=== PATIENT | female | born 1965 | race Caucasian/White ===

== ENCOUNTER 2018-10-04 13:24 | Emergency (ER) | payer MEDICAID, SELFPAY ==
[2018-10-04 13:25] VITALS: BP 158/89; PULSE 103; RESP 17; TEMP 36.8; O2SAT 98; BMI 25.2
--- NOTE | 2018-10-04 13:57 | ED.VIS.GEN ---
History of Present Illness Chief Complaint: Back Informant: Patient Onset: Days Narrative: Presents to the ED with left side sciatic nerve pain that started about a week and a half ago. She states that has been intermittent. 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 She states that today she cannot take the pain any longer. She denies any known injury. She did take Advil earlier this morning for analgesia without relief. She denies any paresthesias or bowel/bladder incontinence. Past Medical History - Allergies and Home Meds Allergies/Adverse Reactions: Allergies No Known Allergies Allergy (Verified 10/04/18 13:25) Primary Care Physician: Corona Duke MD [Primary Care Provider] - Smoking Status: Current every day smoker Review of Systems General: Denies: Chills, Fever, Sweats Eyes: Denies: Visual changes - bilaterally, Diplopia ENT: Denies: Rhinorrhea, Sore throat Cardiovascular: Denies: Chest pain, Palpitations Respiratory: Denies: Dyspnea, Cough, Dyspnea on exertion Gastrointestinal: Denies: Abdominal pain, Nausea, Vomiting, Diarrhea, Melena, Hematochezia Genitourinary: Denies: Dysuria, Hematuria, Frequency Musculoskeletal: Reports: Back pain. Denies: Extremity Pain Skin: Denies: Rash, Wounds Neurological: Denies: Headache, Weakness, Numbness Physical Exam Vital Signs/Narrative: Vital Signs Temp Pulse Resp BP Pulse Ox 10/04/18 13:25 98.2 F 103 H 17 158/89 H 98 General: Well nourished, Well developed, No Acute Distress Head: Normocephalic, Atraumatic Eyes: Perrl, EOMI ENT: Moist mucous membranes, No rhinorrhea Neck: Supple, Nontender Cardiovascular: Regular rate, Regular rhythm, No murmurs Respiratory: No distress, CTA bilaterally, Chest nontender Abdomen: Soft, Nontender, Nondistended, Normal bowel sounds Back: - - TTP over L sciatic notch. No midline lumbar TTP. Extremities: Nontender, No edema Skin: Normal color, No rash Neurological: Alert, Oriented x3, Cranial nerves II-XII grossly intact, Normal Strength, Normal Sensation Psychological: Normal affect, Normal Mood Diagnostic/Tx/Re-eval - Medical Decision Making Patient presents to the ED with left-sided sciatica. She has a history of this. She states it feels similar. She would like to attempt to go to work tonight. She has no focal neurological deficits and is tender to palpation in the left sciatic notch. Patient was given IM Toradol and a dose of Lortab elixir here for symptomatic relief. She states that she cannot swallow whole pills at home and requires tablets to be crushed or oral suspensions of medications. At this time, I think it is safe for the patient be discharged home with prescription for Lortab elixir and will take Naprosyn. She declines prescription for muscle relaxer. She is advised to follow-up with PCP if symptoms persist or worsen. Educated on signs/symptoms to return to the ED. She is provided discharge instructions. She is agreeable plan Impression: Left-sided sciatic nerve pain. Disposition: Home stable ED Disposition - Plan for ED Patient: Disposition: Home or Assisted Living Diagnosis: Sciatica Instructions: BACK PAIN w/ SCIATICA Prescriptions: Hydrocodone/Acetaminophen [Lortab 10 mg-300 mg/15 ml Elxr] 7.5 ml PO Q4H PRN PRN 3 Days #120 ml PRN Reason: Pain Prescription Printed Referrals: Corona Duke MD [Primary Care Provider] -
[2018-10-04] MEDS: Ketorolac 30 MG/ML Syringe IM (14:37)
[2018-10-04 15:46] VITALS: BP 143/88; PULSE 74; RESP 18
== END 2018-10-04 15:47 | disposition home or self-care (01) ==
PROVIDERS: Emergency Provider Physician Assistant; Family Provider Family Medicine; PCP Family Medicine
DX: M54.32 Sciatica, left side (principal); F17.200 Nicotine dependence, unspecified, uncomplicated
CPT/HCPCS: 96372; 99283

== ENCOUNTER 2019-06-05 12:22 | Emergency (ER) | payer MEDICAID, SELFPAY ==
[2019-06-05 12:22] VITALS: BP 141/82; PULSE 120; RESP 20; TEMP 36.4; O2SAT 99; BMI 25.8
[2019-06-05] MEDS: Ketorolac 60 MG/2 ML Vial IM (12:53)
--- NOTE | 2019-06-05 12:54 | ED.VIS.GEN ---
History of Present Illness Chief Complaint: Back Informant: Patient Onset: Days - 2 days Current Severity: Moderate Maximum Severity: Moderate Narrative: Patient presents with recurrent sciatica. 2 days ago she noted pain in the left sciatic region down the lateral portion of her left leg. She states that she had jumped into break up a fight between her son's puppy and another dog. She felt something pull in her left lower back. She denies direct trauma to her back or a fall. She has chronic paresthesias that are unchanged. She did contact her PCP who currently has her on a Medrol Dosepak. - Past Medical History (1) Sciatica Status: Chronic Past Medical History - Allergies and Home Meds Allergies/Adverse Reactions: Allergies No Known Allergies Allergy (Verified 06/05/19 12:24) Primary Care Physician: Corona Duke MD [Primary Care Provider] - Prior records reviewed: Yes Smoking Status: Current every day smoker Review of Systems General: Denies: Chills, Fever Eyes: Denies: Visual changes - bilaterally ENT: Denies: Bilateral ear pain Cardiovascular: Denies: Chest pain Respiratory: Denies: Dyspnea, Cough Gastrointestinal: Denies: Abdominal pain, Nausea, Vomiting, Diarrhea Genitourinary: Denies: Dysuria Musculoskeletal: Reports: Back pain Skin: Denies: Rash Neurological: Reports: Parasthesia - Chronic paresthesias left leg. Denies: Headache Hematologic: Denies: Easy bruising, Easy bleeding Allergy: Denies: Uticaria Physical Exam Vital Signs/Narrative: Vital Signs Temp Pulse Resp BP Pulse Ox 06/05/19 12:22 97.6 F L 120 H 20 H 141/82 H 99 Inital Vital Signs reviewed: Yes General: Well nourished, Well developed Head: Normocephalic ENT: Moist mucous membranes Neck: Supple Cardiovascular: Regular rate, Regular rhythm Respiratory: No distress, CTA bilaterally Abdomen: Soft, Nontender Back: - - No midline thoracic or lumbar tenderness. She does have reproducible tenderness of the left sciatic notch. Extremities: Nontender Skin: Normal color, No rash Neurological: Alert, Oriented x3, - - Patient has good strength and sensation on testing. Strong distal pulses noted. Psychological: Normal affect Diagnostic/Tx/Re-eval - Medical Decision Making Patient is given IM injection of morphine and Toradol here. She will be given a prescription for [place] at home. She was encouraged to take anti-inflammatory as well as her Medrol Dosepak. She will follow with her PCP for further physical therapy. ED Disposition - Plan for ED Patient: Disposition: Home or Assisted Living Diagnosis: Sciatica Instructions: ED LUMBAR RADICULOPATHY Prescriptions: Hydrocodone Bitart/Apap 5-325 [[place] 5MG-325MG] 1 tablet PO Q6H PRN PRN 3 Days #10 tablet PRN Reason: Pain Transmission Status: Received by JO[facility]AD[facility] [facility] Referrals: Corona Duke MD [Primary Care Provider] - 1 Week
[2019-06-05] MEDS: Morphine 4 MG/ML Syringe 8 MG IM (12:59)
--- NOTE | 2019-06-05 13:28 | ED.RN ---
no reaction noted at injection sites.
[2019-06-05 13:29] VITALS: PULSE 82; RESP 17; O2SAT 99
== END 2019-06-05 13:30 | disposition home or self-care (01) ==
PROVIDERS: Emergency Provider Emergency Medicine; PCP Family Medicine
DX: M54.32 Sciatica, left side (principal); F17.200 Nicotine dependence, unspecified, uncomplicated
CPT/HCPCS: 96372; 99282

== ENCOUNTER 2020-05-06 11:36 | Outpatient (RCR) | payer MEDICAID, SELFPAY ==
[2020-05-06] MEDS: COVID-19 VACC, MRNA(PFIZER)/PF 30 MCG/0.3 ML SYRINGE IM (09:11)
[2020-05-27] MEDS: COVID-19 VACC, MRNA(PFIZER)/PF 30 MCG/0.3 ML SYRINGE IM (09:04)
== END 2020-05-06 23:59 ==
LOC: IMMUN 11:36
PROVIDERS: PCP Family Medicine; Visit Provider Family Medicine
DX: Z23 Encounter for immunization (principal)
CPT/HCPCS: 0001A; 0002A; 91300